=== PATIENT | male | born 1950 ===

== ENCOUNTER 2018-07-16 10:09 | Outpatient (CLI) | payer OTHER ==
[~2018-07-16] VITALS: Ht 167.6 cm; Wt 83.9 kg
[2018-07-16] MEDS ORDERED: CLARITIN10 MG PO (10:48)
[2018-07-16] MEDS ORDERED: AYR SALINE NA14.1 GM NASAL (10:48)
== END 2018-07-16 10:25 | disposition home or self-care (01) ==
LOC: OFIC 805 10:09
DX: J31.0 Chronic rhinitis (principal); J34.2 Deviated nasal septum; H61.23 Impacted cerumen, bilateral; J37.0 Chronic laryngitis